=== PATIENT | female | born 1980 | race Caucasian/White ===

== ENCOUNTER 2020-10-11 22:49 | Emergency (ER) | payer BC, SELFPAY ==
--- NOTE | ~2020-10-11 | XR_ITS ---
XR chest 1V portable DATE: 10/11/2020 23:36 INDICATION: Fever TECHNIQUE: Portable AP chest on 10/11/2020 at 2345 hours COMPARISON: 11/30/2018 PA and lateral chest FINDINGS: Heart size appears within normal limits. No pulmonary infiltrate or consolidation, pleural effusion or pulmonary vascular congestion or pneumothorax is detected. IMPRESSION: No active cardiopulmonary disease Reviewed, dictated and finalized at location A.
--- NOTE | 2020-10-11 23:11 | ED.URI ---
HPI - URI/Sore Throat General Chief Complaint: Upper Respiratory Infection Stated Complaint: sore face, head ache, swollen neck Source: patient and RN notes reviewed Mode of arrival: ambulatory Limitations: no limitations History of Present Illness HPI Narrative: and son are both positive for COVID. Patient is currently in isolation apparently tested negative 2 days ago. now patient has cough sore face, headache and swollen neck. She states she had a fever this morning of 101.2 but did not feel bad. She began feeling bad at 5:30 this evening. MD elicited complaint: cough and sore throat Onset (ago): hour(s) (5) Consistency: constant Severity: moderate Description of mucous: clear Able to tolerate fluids by mouth: Yes Context: sick contacts Associated symptoms: fever, chills, myalgias, headache and nasal congestion Related Data Home Medications Medication Instructions Recorded Confirmed No Home Medications 10/11/20 10/11/20 Allergies Allergy/AdvReac Type Severity Reaction Status Date / Time amoxicillin Allergy Mild EDIT Verified 11/28/18 12:27 pseudoephedrine Allergy Mild HIVES Verified 11/28/18 12:27 triprolidine Allergy Mild HIVES Verified 11/28/18 12:27 Review of Systems Review of Systems: All systems reviewed & are unremarkable except as noted in HPI and below Constitutional: Constitutional: Reports chills and Reports fever(s) Eyes: Eyes: Reports no additional eye complaints ENT: Reports sore throat Cardiovascular: Cardiovascular: Reports no additional cardiovascular complaints Respiratory: Respiratory: Reports cough Gastrointestinal: Gastrointestinal: Reports no additional gastrointestinal complaints Musculoskeletal: Musculoskeletal: Reports myalgias Neurologic: Reports system reviewed and no additional complaints, except as documented and Reports headache(s) Psychiatric: Psychiatric: Reports no additional psychiatric complaints PMFSH Past Medical History Medical History (Updated 10/12/20 @ 02:49 by Sp Ramsey MD) No active medical problems Surgical History Surgical History (Updated 10/11/20 @ 23:38 by Sp Ramsey MD) Delivery by section History of appendectomy History of carpal tunnel surgery bilateral Family History Family History Other Family history of lymphoma Family history of malignant neoplasm of bone Social History Social History Alcohol intake: current Exam Const: General: no acute distress and ill appearing acutely Nutritional Appearance: well nourished and obese centrally obese Orientation/consciousness: patient oriented x3 HENMT: Head: normal to inspection Ears: external ears normal General nose exam: Normal external nose present Face and sinus: normal facial exam Throat: abnormal tonsil bilateral erythema and hypertrophy; no exudates and posterior oropharynx abnormal erythema; no exudates Eyes: Conjunctivae: conjunctivae normal Pupils: Equal, round and reactive pupils present EOM: EOMs intact bilaterally Neck: Neck: normal visual inspection and lymphadenopathy bilateral anterior cervical tender Resp: Effort & Inspection: normal respiratory effort Auscultation: clear to auscultation bilaterally Cardio: Rate: regular rate Rhythm: regular rhythm GI: GI Palp: Yes Soft to palpation and No Tenderness to palpation present (GI) Auscultation: normal bowel sounds Back/Spine/Pelvis: Cervical Spine: cervical ROM normal Thoracic/Lumbar Spine: thoraco-lumbar ROM normal Skin: General skin exam: normal color Rashes: no rashes Neuro: General: patient oriented x3, moves all extremities, no meningeal signs and no focal motor deficits Speech: normal speech Gait exam (Neuro): Normal gait present Extrem: General: normal to inspection and no clubbing, cyanosis or edema Psych: Appearance: grossly normal and well kempt Mental Status: mental status grossly normal Affect: norm
[2020-10-11 23:19] VITALS: BP 182/110; PULSE 82; RESP 18; TEMP 37; O2SAT 96
[2020-10-11 23:33] VITALS: O2SAT 96
[2020-10-11 23:49] LABS: Basophils Absolute Auto 0.04 K/mm3 (0.00-0.10); Basophils Percent Auto 0.3 % (0.0-1.0); Eosinophils Absolute Auto 0.21 K/mm3 (0.02-0.50); Eosinophils Percent Auto 1.7 % (1.0-6.0); Immature Granulocyte Absolute 0.06 K/mm3 (0.00-0.00); Immature Granulocyte Percent A 0.5 % (0.0-0.0); Lymphocytes Absolute Auto 1.62 K/mm3 (1.10-4.50); Lymphocytes Percent Auto 13.1 % (18.0-42.0); Mean Corpuscular HGB Conc 34.1 g/dL (32.0-36.0); Mean Corpuscular Hemoglobin 31.2 pg (27.0-31.0); Mean Corpuscular Volume 91.5 fL (78.0-102.0); Mean Platelet Volume 9.2 fl (9.2-11.8); Monocytes Absolute Auto 0.76 K/mm3 (0.10-0.90); Monocytes Percent Auto 6.1 % (2.0-11.0); Neutrophils Absolute Auto 9.7 K/mm3 (1.7-7.2); Neutrophils Percent Auto 78.3 % (50.0-70.0); Platelet Count Result 220 K/mm3 (150-420); Red Blood Count 4.81 M/mm3 (4.20-5.40); Red Cell Distribution Width 11.6 % (11.6-14.4); White Blood Count 12.4 K/mm3 (4.8-10.8)
[2020-10-12 00:03] LABS: SARS-CoV-2 Ag Negative (Negative)
[2020-10-12 00:04] LABS: Influenza Control Valid (Valid)
[2020-10-12 00:07] LABS: D Dimer 0.19 mg/L (0.19-0.50)
[2020-10-12] MEDS: ONDANSETRON HCL ODT 4 MG TABLET PO (00:13)
[2020-10-12] MEDS: DEXAMETHASONE SOD PHOS INJ 4 MG/ML VIAL 10 MG IM (00:15)
[2020-10-12 00:16] LABS: Alanine Aminotransferase 69 U/L (14-59); Albumin Level 3.7 g/dL (3.4-5.0); Alkaline Phosphatase 106 U/L (46-116); Anion Gap 11 mmol/L (8-16); Aspartate Amino Transferase 28 U/L (15-37); Bilirubin,Total 0.4 mg/dL (0.00-1.00); Blood Urea Nitrogen 6 mg/dL (7-18); CRP 0.6 mg/dL (0.0-0.9); Calcium 8.3 mg/dL (8.5-10.1); Carbon Dioxide 25 mmol/L (21-32); Chloride 99 mmol/L (98-108); Estimated CRCL calculation 85 ml/min; Estimated Glomerular Filt Rate > 60; Glucose 121 mg/dL (70-99); Osmolality Calculated 278 mOsm/kg (285-295); Potassium 3.7 mmol/L (3.5-5.1); Sodium 135 mmol/L (136-145); Total Protein 7.1 g/dL (6.4-8.2)
[2020-10-12 00:19] VITALS: BP 186/118; PULSE 87; RESP 20; O2SAT 96
[2020-10-12 00:19] LABS: Ferritin 131 ng/mL (8-252)
[2020-10-12] MEDS: hydrALAZINE HCL 25 MG TABLET PO (00:26)
[2020-10-12 00:46] VITALS: BP 167/115; PULSE 80; RESP 20; O2SAT 96
[2020-10-12] MEDS: cloNIDine HCL 0.1 MG TABLET 0.2 MG PO (01:09)
[2020-10-12 01:31] VITALS: BP 137/97; PULSE 82; RESP 20; O2SAT 95
[2020-10-12] MEDS: KETOROLAC (*BKC) 60 MG/2 ML VIAL IM (01:54)
[2020-10-12 02:18] VITALS: BP 134/88; PULSE 77; RESP 20; O2SAT 96
[2020-10-12 02:38] VITALS: BP 122/92; PULSE 74; RESP 18; O2SAT 95
[2020-10-12 02:46] VITALS: BP 120/90; PULSE 78; RESP 20; TEMP 37; O2SAT 96
== END 2020-10-12 02:53 | disposition home or self-care (01) ==
PROVIDERS: Emergency Provider Emergency Medicine; PCP Physician Assistant
DX: I16.0 Hypertensive urgency (principal); Z20.822 Contact with and (suspected) exposure to COVID-19
CPT/HCPCS: 36415; 71045; 80053; 82728; 85025; 85380; 86140; 87081; 87426; 87804; 87880; 96372; 99283; 99284; A9270; C9803; J1100; J1885

== ENCOUNTER 2024-02-08 11:51 | Outpatient (CLI) | payer BC, SELFPAY ==
--- NOTE | ~2024-02-08 | MM_ITS ---
EXAMINATION: MM screening [facility] BI w edi HISTORY: Screening TECHNIQUE: Craniocaudal and mediolateral oblique 3-D tomosynthesis images were obtained and synthetic 2-D images were generated. CAD analysis was submitted and interpreted. COMPARISON: No prior mammogram is available for comparison at this institution. BREAST PARENCHYMAL COMPOSITION: Not dense: There are scattered areas of fibroglandular density. FINDINGS: There is no evidence of suspicious mass, calcification, or architectural distortion to sugg est malignancy in either breast. There has been no suspicious interval change. IMPRESSION: 1. No mammographic evidence of malignancy. 2. Recommend routine screening mammography in one year. BI-RADS Category 1: Negative Reviewed, dictated and finalized at location B.
== END 2024-02-08 11:52 | disposition home or self-care (01) ==
LOC: CHSIMG 11:52
PROVIDERS: PCP Physician Assistant
DX: Z12.31 Encounter for screening mammogram for malignant neoplasm of breast (principal)
CPT/HCPCS: 77063; 77067